=== PATIENT | female | born 2000 | race African-American/Black ===

== ENCOUNTER 2025-01-05 09:16 | Emergency (ER) | payer BC, SELFPAY ==
[2025-01-05 09:19] VITALS: BP 144/80; PULSE 100; RESP 17; TEMP 36.4; O2SAT 100
--- NOTE | 2025-01-05 09:55 | ED_ITS ---
HPI - URI/Sore Throat General Chief Complaint: Upper Respiratory Infection Stated Complaint: i have a cold and need a doctors note Time Seen by Provider: 01/05/25 09:22 Source: patient Mode of arrival: ambulatory Limitations: no limitations History of Present Illness HPI Narrative: This is a 24 year old female that presents to the ER for cold symptoms. Ongoing over the last 2 days. Reports congestion, rhinorrhea, headache. Denies fever, cough, sore throat. Related Data Home Medications ?Medication ?Instructions ?Recorded ?Confirmed ?Last Taken ?Type tamsulosin 0.4 mg capsule 0.4 mg PO DAILY 08/09/19 Unknown History Allergies Allergy/AdvReac Type Severity Reaction Status Date / Time No Known Allergies Allergy Verified 01/05/25 09:19 Review of Systems Review of Systems: CONSTITUTIONAL: Denies fever ENT: Reports rhinorrhea, congestion RESPIRATORY: Denies cough All systems reviewed & are unremarkable except as noted in HPI and below Exam Narrative: GENERAL: Well-appearing, well-nourished, and in no acute distress. HEAD: Normocephalic, atraumatic. EYES: EOMI. ENT: Nares clear, no rhinorrhea or epistaxis. Mucous membranes moist. Oropharynx without tonsillar hypertrophy exudate or other lesions. Bilateral TMs pearly womack non-bulging NECK: Supple. No adenopathy or masses. CHEST: Clear to auscultation. No respiratory distress. No wheezes rales or rhonchi HEART: Regular rate and rhythm. No murmur heard. Normal peripheral pulses. EXTREMITIES: Normal range of motion. No edema. SKIN: Warm, dry, no rash. NEURO: No focal deficits. Alert and oriented x3. PSYCH: Normal mood and affect Course Vital Signs Vital signs: Vital Signs Temperature 97.6 F 01/05/25 09:19 Pulse Rate 100 01/05/25 09:19 Respiratory Rate 17 01/05/25 09:19 Blood Pressure 144/80 H 01/05/25 09:19 Pulse Oximetry 100 01/05/25 09:19 Oxygen Delivery Room Air 01/05/25 09:19 Temperature 97.6 F 01/05/25 09:19 Pulse Rate 100 01/05/25 09:19 Respiratory Rate 17 01/05/25 09:19 Blood Pressure 144/80 H 01/05/25 09:19 Pulse Oximetry 100 01/05/25 09:19 Oxygen Delivery Room Air 01/05/25 09:19 MDM - URI/Sore Throat MDM Narrative Medical decision making narrative: Patient presents the emergency department for cold symptoms present over the last couple of days. She is afebrile and nontoxic appearing. Oxygen saturation is 100% on room air. Lungs are clear on exam. Influenza, RSV and COVID screens are negative. Patient was instructed on continued care viral infection. She is to follow up with primary provider. She was given warnings to return to the ER Differential Diagnosis Differential diagnosis: Likely upper respiratory infection, sinusitis, viral infection, bronchitis, influenza and other (COVID) Lab Data Labs: Lab Results 01/05/25 Range/Units 09:26 Influenza A (RT-PCR) Negative (Negative) Influenza B (RT-PCR) Negative (Negative) RSV (RT-PCR) Negative (Negative) SARS-CoV-2 RNA (RT-PCR) Negative (Negative) Critical Care Time Critical Care Time Critical Care Time: No Discharge Plan Discharge Clinical Impression: Upper respiratory infection Qualifiers: URI type: unspecified viral URI Qualified Code(s): J06.9 - Acute upper respiratory infection, unspecified Patient Disposition: Home Condition: Stable Instructions: Cold Symptoms (ED) Additional Instructions: Return to the emergency department for worsening symptoms, or any other concerns Remain well-hydrated, get plenty of rest. Take Tylenol or Motrin [id number] for pain as needed. Flonase for nasal congestion. Zyrtec for runny nose. Lozenges or Chloraseptic spray for sore throat. You COVID, influenza, RSV tests were negative today Follow up with your primary care doctor Patient Language: Setswana Prescriptions: No Action tamsulosin 0.4 mg capsule 0.4 mg PO DAILY Follow-up/Referrals: Fritz,NETTIE Stevens [Primary Care Provider] - Stand Alone Forms: Work/School Release IP
[2025-01-05 10:09] LABS: Influenza A QL RT-PCR Negative (Negative); Influenza B QL RT-PCR Negative (Negative); RSV RNA, RT-PCR Negative (Negative); SARS-CoV-2 RNA PCR Negative (Negative)
[2025-01-05 10:56] VITALS: BP 128/83; PULSE 96; RESP 15; TEMP 36.6; O2SAT 100
== END 2025-01-05 10:58 | disposition home or self-care (01) ==
PROVIDERS: Emergency Provider Physician Assistant; PCP Physician Assistant
DX: J06.9 Acute upper respiratory infection, unspecified (principal); Z20.822 Contact with and (suspected) exposure to COVID-19
CPT/HCPCS: 87637; 99283